=== PATIENT | female | born 1965 ===

== ENCOUNTER 2024-08-10 20:13 | Observation (INO) | payer OTHER ==
[2024-08-10 20:36] LABS: BASOPHILS ABSOLUTE AUTO 0.03 K/uL (0.00-0.20); BASOPHILS PERCENT AUTO 0.2 % (0.0-1.0); HEMATOCRIT 37.4 % (37.0-47.0); HEMOGLOBIN 13.2 g/dL (12.0-16.0); IMMATURE GRAN ABSOLUTE AUTO 0.06 K/uL (0.00-0.05); IMMATURE GRAN PERCENT AUTO 0.3 % (0.0-0.4); LYMPHOCYTES ABSOLUTE AUTO 0.63 K/uL (1.00-4.80); LYMPHOCYTES PERCENT AUTO 3.5 % (24.0-44.0); MEAN CORPUSCULAR HEMOGLOBIN 31.4 pg (28.0-32.0); MEAN CORPUSCULAR HGB CONC 35.3 g/dL (32.0-36.0); MEAN PLATELET VOLUME 9.6 fL (9.4-12.3); MONOCYTES ABSOLUTE AUTO 0.61 K/uL (0.00-0.80); MONOCYTES PERCENT AUTO 3.4 % (0.0-8.0); NEUTROPHILS ABSOLUTE AUTO 16.62 K/uL (1.80-7.70); NEUTROPHILS PERCENT AUTO 92.6 % (41.0-71.0); PLATELET COUNT,PLT 209 K/uL (150-400); WHITE BLOOD CELL COUNT,WBC 17.95 K/uL (3.9-11.3)
[2024-08-10] MEDS ORDERED: Sodium Chloride 0.9% 10 ML Syringe FLUSH PRN (20:52)
[2024-08-10] MEDS: Sodium Chloride 0.9% 1,000 ML IV ONE ×2 (21:06→22:04)
[2024-08-10] MEDS: Ondansetron 4 MG/2 ML SDV IVPUSH ONE (21:06)
[2024-08-10 21:12] LABS: A/G RATIO 1.1 (0.9-1.6); ALBUMIN 4.1 g/dL (3.4-5.0); BILIRUBIN TOTAL 0.9 mg/dL (0.2-1.0); CALCIUM 9.8 mg/dL (8.5-10.1); CARBON DIOXIDE,CO2 21.5 mmol/L (21.0-32.0); CREATININE 1.1 mg/dL (0.6-1.0); EST CRCL DRUG DOSING (CG) 54.87 mL/min; POTASSIUM,K 3.7 mmol/L (3.5-5.1)
[2024-08-10] MEDS ORDERED: Morphine 2 MG/ML SYRINGE IVPUSH PRN (22:42)
[2024-08-10] MEDS: Promethazine 25 MG/ML SDV IM ONE (22:50)
[2024-08-10] MEDS: Iopamidol 755 MG/ML 500 ML Multipack Bottle IVPUSH ONE (23:09)
[2024-08-10 23:15] LABS: BILIRUBIN,URINE NEGATIVE (NEGATIVE); COLOR,URINE YELLOW; GLUCOSE,URINE 100 mg/dL (NEGATIVE); KETONES,URINE 15 mg/dL (NEGATIVE); LEUKOCYTE ESTERASE,URINE NEGATIVE (NEGATIVE); NITRITE,URINE NEGATIVE (NEGATIVE); OCCULT BLOOD,URINE TRACE-INTACT (NEGATIVE); PH,URINE 8.5 (5.0-8.0); PROTEIN,URINE NEGATIVE (NEGATIVE); UROBILINOGEN,URINE 0.2 EU/dL (<2.0)
[2024-08-10 23:17] LABS: APPEARANCE,URINE SLT CLOUDY
[2024-08-10 23:26] LABS: AMORPHOUS SEDIMENT,URINE HEAVY (NEGATIVE); BACTERIA,URINE FEW (NEGATIVE); MUCUS,URINE LIGHT (NONE-MOD); SQUAMOUS EPITHELIAL CELLS,UR FEW; WBC,URINE 0-1 (0-5/HPF)
[2024-08-10] MEDS ORDERED: Morphine 4 MG/ML Syringe IVPUSH PRN (23:39)
[2024-08-11] MEDS: cefOXitin 2 GM in Sodium Chloride 0.9% 50 ML IV ONE (00:02)
[2024-08-11] MEDS: Sodium Chloride 0.9% 1,000 ML IV SCH (00:43)
[2024-08-11] MEDS: Lactated Ringers 1,000 ML IV SCH (09:00)
[2024-08-11] MEDS ORDERED: propofoL 500 MG/50 ML 50 ML ONE (10:01)
[2024-08-11] MEDS ORDERED: Propofol 200 MG/20 ML SDV ONE (10:03)
[2024-08-11] MEDS ORDERED: fentaNYL 250 MCG/5 ML SDV ONE (10:04)
[2024-08-11] MEDS ORDERED: Rocuronium Bromide 50 MG/5 ML Syringe ONE (10:04)
[2024-08-11] MEDS ORDERED: Lidocaine 2% 5 ML SDV ONE (10:04)
[2024-08-11] MEDS ORDERED: Ketamine HCL/NACL, ISO-OSM 50 MG/5 ML Syringe ONE (10:04)
[2024-08-11] MEDS ORDERED: Morphine 10 MG/ML SDV ONE (10:07)
[2024-08-11] MEDS ORDERED: Ropivacaine 0.5% 5 MG/ML 30 ML SDV ONE (10:07)
[2024-08-11] MEDS ORDERED: Bupivacaine 0.25% 30 ML SDV ONE (10:07)
[2024-08-11] MEDS ORDERED: Phenylephrine HCl In 0.9% NaCl 1 MG/10 ML Syringe IVPUSH PRN (10:27)
[2024-08-11] MEDS ORDERED: HYDROmorphone 1 MG/ML Syringe IVPUSH PRN (10:27)
[2024-08-11] MEDS ORDERED: Morphine 2 MG/ML SYRINGE IVPUSH PRN ×2 (10:27→12:16)
[2024-08-11] MEDS ORDERED: Albuterol 0.083% 2.5 MG/3 ML Neb Soln NEB PRN (10:27)
[2024-08-11] MEDS ORDERED: fentaNYL 50 MCG/ML SDV IVPUSH PRN (10:27)
[2024-08-11] MEDS ORDERED: Metoclopramide 10 MG/2 ML SDV IVPUSH PRN (10:27)
[2024-08-11] MEDS ORDERED: Naloxone 0.4 MG/ML SDV IVPUSH PRN (10:27)
[2024-08-11] MEDS ORDERED: Ondansetron 4 MG/2 ML SDV IVPUSH PRN (10:27)
[2024-08-11] MEDS ORDERED: ceFAZolin 1 GM Vial ONE (10:42)
[2024-08-11] MEDS ORDERED: Bupivacaine 0.5% 30 ML SDV ONE (10:42)
[2024-08-11] MEDS ORDERED: Phenylephrine HCl In 0.9% NaCl 1 MG/10 ML Syringe ONE (11:12)
[2024-08-11] MEDS ORDERED: fentaNYL 100 MCG/2 ML SDV ONE (11:32)
[2024-08-11] MEDS ORDERED: Ondansetron 4 MG/2 ML SDV ONE (11:34)
[2024-08-11] MEDS ORDERED: Ketorolac 30 MG/ML SDV ONE (11:34)
[2024-08-11] MEDS ORDERED: Dexamethasone 4 MG/ML 5 ML MDV ONE (11:34)
[2024-08-11] MEDS ORDERED: Sugammadex Sodium 200 MG/2 ML VIAL IV ONE (12:04)
[2024-08-11] MEDS ORDERED: Lactated Ringers 1,000 ML IV SCH (12:15)
[2024-08-11] MEDS ORDERED: Acetaminophen/HYDROcodone 325-5 MG Tab PO PRN (12:16)
== END 2024-08-11 13:45 | disposition home or self-care (01) ==
LOC: MW.ED 20:13 → MW.MS 23:39
PROVIDERS: ADMIT Surgery; ATTEND Surgery
DX: K35.33 Acute appendicitis with perforation, localized peritonitis, and gangrene, with abscess (principal); E03.9 Hypothyroidism, unspecified; Z79.890 Hormone replacement therapy; Z79.899 Other long term (current) drug therapy
CPT/HCPCS: 36415; 44970; 71045; 74177; 80053; 81001; 83605; 83690; 83880; 85025; 87428; 96361; 96365; 96372; 96374; 96376; 99285; G0378; J0131; J0665; J0694; J1100; J1885; J2272; J2371; J2405; J2550; J2704; J2795; J3010; J3490; J7030; J7120; Q9967; 00840; 64488; 93010; 96375; J0690